=== PATIENT | male | born 1945 | race Caucasian/White ===

== ENCOUNTER 2018-06-01 11:36 | Emergency (ER) | payer OTHER ==
[~2018-06-01] VITALS: Ht 177.8 cm; Wt 99.3 kg
[2018-06-01 12:02] VITALS: Ht 177.8 cm; Wt 99.3 kg
[2018-06-01 13:10] LABS: BASOPHILS 0.8 % (0-2); EOSINOPHILS 4.1 % (0-7); HEMATOCRIT 42.6 % (42.0-54.0); HEMOGLOBIN 13.9 g/dL (13.5-17.5); IMMATURE GRANULOCYTES 0.5 % (0-5); LYMPHOCYTES 19.1 % (15-50); MCH 29.6 pg (26.0-34.0); MCHC 32.6 g/dL (31.0-37.0); MCV 90.8 fL (80.0-100.0); MEAN PLATELET VOLUME 9.9 fL (7.4-10.4); MONOCYTES 7.1 % (2-11); NEUTROPHILS 68.4 % (40-80); PLATELET COUNT 169 10x3/uL (130-400); RBC 4.69 10x6/uL (4.20-6.10); RDW 16.7 % (11.5-14.5)
[2018-06-01 13:15] LABS: ALBUMIN 4.1 g/dL (3.4-5.0); ALKALINE PHOSPHATASE 32 U/L (46-116); ALT (SGPT) 20 U/L (10-68); BILIRUBIN - TOTAL 1.01 mg/dL (0.2-1.3); CALC OSMOLALITY 282 mosm/kg (275-300); CARBON DIOXIDE 28.7 mmol/L (21.0-32.0); CHLORIDE - SERUM 103 mmol/L (98-107); CREATININE - SERUM 1.9 mg/dL (0.6-1.3); GLUCOSE 96 mg/dL (74-106); POTASSIUM - SERUM 4.6 mmol/L (3.5-5.1); PROTEIN - SERUM 8.2 g/dL (6.4-8.2); SODIUM 140 mmol/L (136-145); UREA NITROGEN 24 mg/dL (7-18); eGFR NON AFRICAN AMERICAN 37 mL/min (90-120)
[2018-06-01 13:22] LABS: CKMB 3.9 U/L (0.0-3.6)
[2018-06-01 13:25] LABS: TROPONIN-I < 0.017 ng/mL (0.000-0.060)
[2018-06-01] MEDS ORDERED: LASIX40 MG PO (16:34)
[2018-06-01] MEDS ORDERED: K-TAB10 MEQ PO (16:34)
[2018-06-01 16:58] VITALS: BP 200/129
== END 2018-06-01 17:01 | disposition home or self-care (01) ==
LOC: D.ER 11:36
PROVIDERS: Family Medicine
DX: J81.0 Acute pulmonary edema (principal); Z86.79 Personal history of other diseases of the circulatory system; I10 Essential (primary) hypertension; R00.2 Palpitations; N28.9 Disorder of kidney and ureter, unspecified; I49.3 Ventricular premature depolarization

== ENCOUNTER 2020-01-14 17:26 | Inpatient (IN) | payer OTHER ==
[~2020-01-14] VITALS: Ht 177.8 cm; Wt 90.3 kg
[~2020-01-14 17:26] MED LIST: K-TAB10 MEQ PO; LASIX40 MG PO
[2020-01-14] MEDS ORDERED: ZYLOPRIM100 MG PO (17:38)
[2020-01-14] MEDS ORDERED: LIPITOR80 MG PO (17:39)
[2020-01-14] MEDS ORDERED: COREG 3.1253.125 MG PO (17:39)
[2020-01-14] MEDS ORDERED: PACERONE200 MG PO (17:39)
[2020-01-14] MEDS ORDERED: VITAMIN B-121000 MCG PO (17:40)
[2020-01-14] MEDS ORDERED: TRICOR145 MG PO (17:40)
[2020-01-14] MEDS ORDERED: STOOL SOFTENER240 MG PO (17:40)
[2020-01-14] MEDS ORDERED: LASIX40 MG PO (17:41)
[2020-01-14] MEDS ORDERED: FERROUS GLUCON324 MG PO (17:41)
[2020-01-14] MEDS ORDERED: ZOLOFT100 MG PO (17:42)
[2020-01-14] MEDS ORDERED: SYNTHROID100 MCG PO (17:42)
[2020-01-14] MEDS ORDERED: PAMELOR10 MG PO (17:42)
[2020-01-14] MEDS ORDERED: VITAMIN D (17:44)
[2020-01-14 18:17] LABS: HEMATOCRIT 45.3 % (42.0-54.0); HEMOGLOBIN 14.6 g/dL (13.5-17.5); LYMPHOCYTES 11.4 % (15-50); MCH 30.8 pg (26.0-34.0); MCHC 32.2 g/dL (31.0-37.0); MCV 95.6 fL (80.0-100.0); MEAN PLATELET VOLUME 11.5 fL (7.4-10.4); NEUTROPHILS 79.1 % (40-80); PLATELET COUNT 180 10x3/uL (130-400); RBC 4.74 10x6/uL (4.20-6.10); RDW 19.1 % (11.5-14.5); WBC 7.2 10x3/uL (4.8-10.8)
[2020-01-14 18:21] LABS: APTT 41.2 SECONDS (22.8-39.4); INR 1.36 (0.85-1.17); PROTIME 16.6 SECONDS (11.6-15.0)
[2020-01-14 18:29] LABS: CALC OSMOLALITY 293 mosm/kg (275-300); CALCIUM 9.2 mg/dL (8.5-10.1); CARBON DIOXIDE 31.4 mmol/L (21.0-32.0); CHLORIDE - SERUM 101 mmol/L (98-107); CREATININE - SERUM 2.9 mg/dL (0.6-1.3); GLUCOSE 139 mg/dL (74-106); POTASSIUM - SERUM 4.6 mmol/L (3.5-5.1); SODIUM 141 mmol/L (136-145); UREA NITROGEN 44 mg/dL (7-18); eGFR NON AFRICAN AMERICAN 23 mL/min (90-120)
[2020-01-14 18:41] LABS: BILIRUBIN NEGATIVE (NEGATIVE); GLUCOSE NEGATIVE (NEGATIVE); KETONE NEGATIVE (NEGATIVE); NITRITE NEGATIVE (NEGATIVE); UROBILINOGEN NORMAL (NORMAL)
[2020-01-14 18:45] LABS: ALBUMIN 3.9 g/dL (3.4-5.0); ALKALINE PHOSPHATASE 31 U/L (30-120); ALT (SGPT) 31 U/L (10-68); BILIRUBIN - TOTAL 0.99 mg/dL (0.2-1.3); CKMB 2.3 U/L (0.0-3.6); CREATINE KINASE 72 UL (21-232); MAGNESIUM - SERUM 2.5 mg/dL (1.8-2.4); PROTEIN - SERUM 7.5 g/dL (6.4-8.2)
[2020-01-14 18:50] LABS: THYROID STIMULATING HORMONE 80.22 uIU/mL (0.36-3.74); TROPONIN-I < 0.017 ng/mL (0.000-0.060)
[2020-01-14 18:52] LABS: UDS - AMPHET NEGATIVE QUAL (NEGATIVE); UDS - BARB NEGATIVE QUAL (NEGATIVE); UDS - BENZO NEGATIVE QUAL (NEGATIVE); UDS - COCAINE NEGATIVE QUAL (NEGATIVE); UDS - OPIATE NEGATIVE QUAL (NEGATIVE); UDS - PCP NEGATIVE QUAL (NEGATIVE); UDS - THC NEGATIVE QUAL (NEGATIVE)
[2020-01-14 20:34] VITALS: BP 118/83
[2020-01-14 21:11] VITALS: BP 103/55; BMI 28.6
[2020-01-15 04:48] LABS: HEMATOCRIT 39.5 % (42.0-54.0); HEMOGLOBIN 12.9 g/dL (13.5-17.5); LYMPHOCYTES 16.1 % (15-50); MCH 30.9 pg (26.0-34.0); MCHC 32.7 g/dL (31.0-37.0); MCV 94.5 fL (80.0-100.0); MEAN PLATELET VOLUME 11.2 fL (7.4-10.4); NEUTROPHILS 73.1 % (40-80); PLATELET COUNT 152 10x3/uL (130-400); RBC 4.18 10x6/uL (4.20-6.10); RDW 19.1 % (11.5-14.5); WBC 6.2 10x3/uL (4.8-10.8)
[2020-01-15 04:56] LABS: ALBUMIN 3.3 g/dL (3.4-5.0); ANION GAP 13.4 mmol/L (8-16); BILIRUBIN - TOTAL 0.97 mg/dL (0.2-1.3); CALCIUM 8.6 mg/dL (8.5-10.1); CARBON DIOXIDE 29.6 mmol/L (21.0-32.0); CREATININE - SERUM 2.7 mg/dL (0.6-1.3); MAGNESIUM - SERUM 2.3 mg/dL (1.8-2.4); PHOSPHOROUS 3.3 mg/dL (2.5-4.9); PROTEIN - SERUM 6.6 g/dL (6.4-8.2); T4 THYROXIN - FREE 0.67 ng/dL (0.76-1.46)
[2020-01-15 06:27] VITALS: BP 116/67
--- NOTE | 2020-01-15 07:25 | NUR ---
PT IS RESTING IN BED WITH EYES CLOSED. RESPIRATIONS ARE EVEN AND UNLABORED. PT IS AAO X 4 AND ANSWERS ALL QUESTIONS APPROPRIATELY. PT REFUSING SCDS AT THIS TIME. PT DENIES PRESENCE OF PAIN/N/V/DYSPNEA AT THIS TIME. ALL FALL PRECAUTIONS IN PLACE. BED IS IN THE LOWEST POSITION. CALL LIGHT AND BEDSIDE TABLE ARE WITHIN REACH. SIDE RAILS X 2. PT DENIES FURTHER NEEDS. WILL CONT TO MONITOR.
[2020-01-15 08:46] VITALS: BP 126/73
--- NOTE | 2020-01-15 08:49 | NUR ---
PT STATES CLOSTERPHOBIA AND INCREASE IN ANXIETY DUE TO MRI AND FURTHER TESTING TODAY. ANALI GLYNN NOTIFIED OF PT STATEMENT. WILL AWAIT FURTHER ORDERS.
[2020-01-15 12:29] VITALS: BP 124/68
[2020-01-15 12:52] VITALS: Ht 177.8 cm; Wt 90.3 kg
--- NOTE | 2020-01-15 12:58 | MORECARE ---
CASE MANAGEMENT DISCHARGE SUMMARY PATIENT: АЛЕКСАНДР JORDAN UNIT: [id number] ADM DATE: 01/14/20 AGE: 74 : 44 SEX: M ROOM/BED: D.2213 AUTHOR: SHIVANI,DOC PHYSICIAN: REFERRING PHYSICIAN: RONA KHAN MD DATE OF SERVICE: 01/15/20 Discharge Plan Patient Name: АЛЕКСАНДР JORDAN Facility: [facility]:[place] : 1945 Planned Disposition: Home or Self Care Anticipated Discharge Date: Discharge Date: Expected LOS: Initial Reviewer: [email or web address] Initial Review Date: 01/14/2020 Generated: 01/15/20 1:58 pm Comments DCP- Discharge Planning Updated by [email or web address]: Kami Izquierdo on 01/15/20 11:[address] Patient Name: АЛЕКСАНДР JORDAN Admission Status: ER Accout number: [id number] Admission Date: 01-14-2020 : 1945 Admission Diagnosis: Attending: RONA KHAN Current LOS: 1 Anticipated DC Date: Planned Disposition: Home or Self Care Primary Insurance: MEDICARE A & B Discharge Planning Comments: CM met with patient to complete initial dc planning assessment. CM educated patient on the CM role and verbal consent given by patient to complete assessment. Patient lives at home with his spouse where he is independent at home. At discharge patient plans to return home and feels this is a safe discharge. 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 CM discussed availability of home health, rehab services, and medical equipment. His said she has a walker in the car, but he does not use it. She will be his driver license reviewing officer home. Patient denied known discharge needs at this time. CM will continue to follow and will assist as needed with dc plans/needs. File Clerk Data Entry: Kami Izquierdo DCPIA - Discharge Planning Initial Assessment Updated by [email or web address]: Kami Izquierdo on 01/15/20 12:53 pm * Is the patient Alert and Oriented? Yes * How many steps to enter\exit or inside your home? * PCP DR PAINTING * Pharm[facility] * Preadmission Environment Home with Family * ADLs Independent * Equipment Rolling Walker * List name and contact numbers for known caregivers / representatives who currently or will assist patient after discharge: FELIPA JORDAN [phone] * Verbal permission to speak to the caregivers and representatives has been obtained from the patient. N/A * Community resources currently utilized None * Additional services required to return to the preadmission environment? No * Can the patient safely return to the preadmission environment? Yes * Has this patient been hospitalized within the prior 30 days at any hospital? No Patient Name: АЛЕКСАНДР JORDAN Page [phone] at 1258 All edits/amendments must be made on the electronic document DICTATION DATE: 01/15/20 125 RADIOACTIVE WASTE DISPOSAL DISPATCHER: JAZMIN 01/15/20 1258 RPT#: [id number] DC DATE: STATUS: ADM IN [facility] [address] [place] [address] END OF REPORT
--- NOTE | 2020-01-15 13:13 | MORECARE ---
CASE MANAGEMENT DISCHARGE SUMMARY PATIENT: АЛЕКСАНДР JORDAN UNIT: [id number] ADM DATE: 01/14/20 AGE: 74 : 44 SEX: M ROOM/BED: D.2213 AUTHOR: SHIVANI,DOC PHYSICIAN: REFERRING PHYSICIAN: RONA KHAN MD DATE OF SERVICE: 01/15/20 Discharge Plan Patient Name: АЛЕКСАНДР JORDAN Facility: [facility]:[place] : 1945 Planned Disposition: Home or Self Care Anticipated Discharge Date: Discharge Date: Expected LOS: Initial Reviewer: [email or web address] Initial Review Date: 01/14/2020 Generated: 01/15/20 2:13 pm Comments DCP- Discharge Planning Updated by [email or web address]: Kami Izquierdo on 01/15/20 12:[address] spoke with Cele (CM at [place] about patient) Cele # [phone] DCP- Discharge Planning Updated by [email or web address]: Kami Izquierdo on 01/15/20 11:[address] Patient Name: АЛЕКСАНДР JORDAN Admission Status: ER Accout number: [id number] Admission Date: 01-14-2020 : 1945 Admission Diagnosis: Attending: RONA KHAN Current LOS: 1 Anticipated DC Date: Planned Disposition: Home or Self Care Primary Insurance: MEDICARE A & B Discharge Planning Comments: CM met with patient to complete initial dc planning assessment. CM educated patient on the CM role and verbal consent given by patient to complete assessment. Patient lives at home with his spouse where he is independent at home. At discharge patient plans to return home and feels this is a safe discharge. 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 CM discussed availability of home health, rehab services, and medical equipment. His said she has a walker in the car, but he does not use it. She will be his class c truck driver home. Patient denied known discharge needs at this time. CM will continue to follow and will assist as needed with dc plans/needs. Rn Immunology: Kami Izquierdo DCPIA - Discharge Planning Initial Assessment Updated by [email or web address]: Kami Izquierdo on 01/15/20 12:53 pm * Is the patient Alert and Oriented? Yes * How many steps to enter\exit or inside your home? * PCP [facility] PAINTING * [facility] * Preadmission Environment Home with Family * ADLs Independent * Equipment Rolling Walker * List name and contact numbers for known caregivers / representatives who currently or will assist patient after discharge: FELIPA JORDAN [phone] * Verbal permission to speak to the caregivers and representatives has been obtained from the patient. N/A * Community resources currently utilized None * Additional services required to return to the preadmission environment? No * Can the patient safely return to the preadmission environment? Yes * Has this patient been hospitalized within the prior 30 days at any hospital? No Last DP export: 01/15/20 11:58 a Patient Name: АЛЕКСАНДР JORDAN Page [phone] at 1313 All edits/amendments must be made on the electronic document DICTATION DATE: 01/15/20 1313 CERAMIC PLATER: JAZMIN 01/15/20 1313 RPT#: [id number] DC DATE: STATUS: ADM IN [facility] [address] [place] [address] END OF REPORT
--- NOTE | 2020-01-15 13:48 | MORECARE ---
CASE MANAGEMENT DISCHARGE SUMMARY PATIENT: АЛЕКСАНДР JORDAN UNIT: [id number] ADM DATE: 01/14/20 AGE: 74 : 44 SEX: M ROOM/BED: D.2213 AUTHOR: SHIVANI,DOC PHYSICIAN: REFERRING PHYSICIAN: RONA KHAN MD DATE OF SERVICE: 01/15/20 Discharge Plan Patient Name: АЛЕКСАНДР JORDAN Facility: [facility]:[place] : 1945 Planned Disposition: Home or Self Care Anticipated Discharge Date: Discharge Date: Expected LOS: Initial Reviewer: [email or web address] Initial Review Date: 01/14/2020 Generated: 01/15/20 2:47 pm Comments DCP- Discharge Planning Updated by [email or web address]: Kami Izquierdo on 01/15/20 12:[address] TAMERA WITH [place] EXPEDITOR CALLED AND NOTIFIED DCP- Discharge Planning Updated by [email or web address]: Kami Izquierdo on 01/15/20 12:[address] spoke with Cele (CM at [place] about patient) Cele # [phone] DCP- Discharge Planning Updated by [email or web address]: Kami Izquierdo on 01/15/20 11:[address] Patient Name: АЛЕКСАНДР JORDAN Admission Status: ER Accout number: [id number] Admission Date: 01-14-2020 : 1945 Admission Diagnosis: Attending: RONA KHAN Current LOS: 1 Anticipated DC Date: Planned Disposition: Home or Self Care Primary Insurance: MEDICARE A & B Discharge Planning Comments: CM met with patient to complete initial dc planning assessment. CM educated patient on the CM role and verbal consent given by patient to complete assessment. Patient lives at home with his spouse where he is independent at home. At discharge patient plans to return home and feels this is a safe discharge. 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 CM discussed availability of home health, rehab services, and medical equipment. His said she has a walker in the car, but he does not use it. She will be his warehouse delivery driver home. Patient denied known discharge needs at this time. CM will continue to follow and will assist as needed with dc plans/needs. Hand Etcher: Kami Izquierdo DCPIA - Discharge Planning Initial Assessment Updated by [email or web address]: Kami Izquierdo on 01/15/20 12:53 pm * Is the patient Alert and Oriented? Yes * How many steps to enter\exit or inside your home? * PCP DR PAINTING * [facility]acy [facility] * Preadmission Environment Home with Family * ADLs Independent * Equipment Rolling Walker * List name and contact numbers for known caregivers / representatives who currently or will assist patient after discharge: FELIPA JORDAN [phone] * Verbal permission to speak to the caregivers and representatives has been obtained from the patient. N/A * Community resources currently utilized None * Additional services required to return to the preadmission environment? No * Can the patient safely return to the preadmission environment? Yes * Has this patient been hospitalized within the prior 30 days at any hospital? No Last DP export: 01/15/20 12:13 p Patient Name: АЛЕКСАНДР JORDAN Page [phone] at 1348 All edits/amendments must be made on the electronic document DICTATION DATE: 01/15/20 1347 LIVESTOCK NUTRITION TERRITORY MANAGER: JAZMIN 01/15/20 1347 RPT#: [id number] DC DATE: STATUS: ADM IN [facility] [address] [place] [address] END OF REPORT
--- NOTE | 2020-01-15 14:14 | NUR ---
TO BRING CPAP FROM HOME.
--- NOTE | 2020-01-15 14:15 | NUR ---
PT IS SITTING UP TO SIDE OF BED. PT SPOUSE AT BEDSIDE. PT SPOUSE STATES THAT PT HAS BEEN HAVING DIFFICULTY WITH URINATION AND STATES "HE SAYS HE NEEDS TO GO BUT IT IS ONLY A LITTLE BIT AT A TIME". PT INSTRUCTED TO NOTIFY NURSE OF NEXT VOID AND WILL BLADDER SCAN AT COMPLETION OF VOIDING. PT VERBALIZES UNDERSTANDING.
[2020-01-15 17:42] VITALS: BP 108/66
--- NOTE | 2020-01-15 18:42 | NUR ---
PT STATES THAT HE "FORGOT" TO NOTIFY WHEN LAST VOID WAS COMPLETED TO DO BLADDER. SCAN. PT SPOUSE STATES "HE ONLY WENT JUST A LITTLE BIT AND THAT WAS ABOUT AN HOUR AGO". BLADDER SCAN COMPLETED AND SHOWED 398ML IN BLADDER. PT DENIES PRESENCE OF DISCOMFORT AND FEELINGS OF NEEDING TO URINATE AT THIS TIME.
--- NOTE | 2020-01-15 18:55 | NUR ---
KRISTIN MIKE APRN RETURNS PAGE AND NOTIFIED OF PT STATUS AND BLADDER SCAN. TELEPHONE ORDERS RECD ARE I&O Q 4 HOURS AND RESCAN BLADDER IN 4 HOURS. NOTIFY IF SCAN SHOWS 400 OR > FLUID IN BLADDER.
[2020-01-15 20:00] VITALS: BP 120/77
--- NOTE | 2020-01-15 20:00 | NUR ---
PT SITTING UP IN BED WITHOUT DISTRESS, AOX4. IV RIGHT AC INFUSING NS @ 75. NO COMPLAINTS, DENIES NEEDS. CPAP AT BEDSIDE FOR PT TO USE WHILE SLEEPING. LEAVING TO GO HOME AT THIS TIME. BED ALARM ON. CL IN REACH, WILL CTM
--- NOTE | 2020-01-15 23:00 | NUR ---
BLADDER SCAN SHOWED >249ML. PT DOES NOT FEEL URGE TO VOID AT THIS TIME
[2020-01-16] VITALS: BP 116/67
[2020-01-16 04:00] VITALS: BP 111/63
[2020-01-16 05:06] LABS: ALBUMIN 3.3 g/dL (3.4-5.0); ANION GAP 13.4 mmol/L (8-16); BILIRUBIN - TOTAL 0.94 mg/dL (0.2-1.3); CALCIUM 8.6 mg/dL (8.5-10.1); CARBON DIOXIDE 27.5 mmol/L (21.0-32.0); CREATININE - SERUM 2.4 mg/dL (0.6-1.3); MAGNESIUM - SERUM 2.3 mg/dL (1.8-2.4); PHOSPHOROUS 2.9 mg/dL (2.5-4.9); POTASSIUM - SERUM 3.9 mmol/L (3.5-5.1); PROTEIN - SERUM 6.8 g/dL (6.4-8.2)
[2020-01-16 05:36] LABS: HEMATOCRIT 40.1 % (42.0-54.0); HEMOGLOBIN 13.1 g/dL (13.5-17.5); LYMPHOCYTES 12.8 % (15-50); MCH 30.7 pg (26.0-34.0); MCHC 32.7 g/dL (31.0-37.0); MCV 93.9 fL (80.0-100.0); MEAN PLATELET VOLUME 11.1 fL (7.4-10.4); NEUTROPHILS 76.9 % (40-80); PLATELET COUNT 147 10x3/uL (130-400); RBC 4.27 10x6/uL (4.20-6.10); RDW 18.9 % (11.5-14.5); WBC 7.1 10x3/uL (4.8-10.8)
[2020-01-16 07:29] VITALS: BP 120/75
--- NOTE | 2020-01-16 07:37 | NUR ---
ALERT AND ORIENTED. LUNGS CLEAR BILATERALLY. HEART SOUNDS S1 AND S2 HEARD IN ALL MACDONALD. BOWEL SOUNDS ACTIVE X 4. SKIN INTACT WITHOUT REDNESS. IV TO RIGHT AC PATENT WITHOUT REDNESS. DENIES NEEDS. BED LOW. FALL PRECAUTIONS IN PLACE. CALL URBINA AND PERSONAL ITEMS INREACH. WILL CONTINUE TO MONITOR.
[2020-01-16 09:08] LABS: THYROGLOBULIN ANTIBODY <1.0 IU/mL (0.0-0.9); THYROID PEROXIDASE ABS <9 IU/mL (0-34)
--- NOTE | 2020-01-16 09:45 | NUR ---
PATIENT IN BED WITH NO COMPLAINTS OR SIGNS OF DISTRESS. IV INTACT. FAMILY AT BEDSIDE. CALL LIGHT WITHIN REACH.
[2020-01-16 12:52] VITALS: BP 108/66
--- NOTE | 2020-01-16 14:00 | NUR ---
PATIENT RECIEVED DC INSTRUCTIONS. VERBALIZED UNDERSTANDING.NO QUESTIONS AT THIS TIME. EXPLAINED TO MECHANICAL DRAWING TEACHER MEDS AT [facility].VERBALIZED UNDERSTANDING. IV REMOVED WITH CATH TIP INTACT. ESCORTED PATIENT DOWN TO PRIVATE VEHICLE WITH PERSONAL BELONGINGS WITH FAMILY.
[2020-01-16] MEDS ORDERED: LEVOTHYROXINE150 MCG PO (14:23)
[2020-01-16] MEDS ORDERED: FLOMAX0.4 MG PO (14:23)
--- NOTE | 2020-01-16 17:13 | MORECARE ---
CASE MANAGEMENT DISCHARGE SUMMARY PATIENT: АЛЕКСАНДР JORDAN UNIT: [id number] ADM DATE: 01/15/20 AGE: 74 : 44 SEX: M ROOM/BED: D.2213 AUTHOR: SHIVANI,DOC PHYSICIAN: REFERRING PHYSICIAN: RONA KHAN MD DATE OF SERVICE: 01/16/20 Discharge Plan Patient Name: АЛЕКСАНДР JORDAN Facility: [facility]:[place] : 1945 Planned Disposition: Home or Self Care Anticipated Discharge Date: Discharge Date: 01/16/2020 Expected LOS: Initial Reviewer: [email or web address] Initial Review Date: 01/14/2020 Generated: 01/16/20 6:12 pm Comments DCP- Discharge Planning Updated by [email or web address]: Kami Izquierdo on 01/15/20 12:[address] TAMERA WITH [place] EXPEDITOR CALLED AND NOTIFIED DCP- Discharge Planning Updated by [email or web address]: Kami Izquierdo on 01/15/20 12:[address] spoke with Cele (CM at [place] about patient) Cele # [phone] DCP- Discharge Planning Updated by [email or web address]: Kami Izquierdo on 01/15/20 11:[address] Patient Name: АЛЕКСАНДР JORDAN Admission Status: ER Accout number: [id number] Admission Date: 01-14-2020 : 1945 Admission Diagnosis: Attending: RONA KHAN Current LOS: 1 Anticipated DC Date: Planned Disposition: Home or Self Care Primary Insurance: MEDICARE A & B Discharge Planning Comments: CM met with patient to complete initial dc planning assessment. CM educated patient on the CM role and verbal consent given by patient to complete assessment. Patient lives at home with his spouse where he is independent at home. At discharge patient plans to return home and feels this is a safe discharge. 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 CM discussed availability of home health, rehab services, and medical equipment. His said she has a walker in the car, but he does not use it. She will be his driver guard home. Patient denied known discharge needs at this time. CM will continue to follow and will assist as needed with dc plans/needs. Police Dispatcher: Kami Izquierdo DCPIA - Discharge Planning Initial Assessment Updated by [id number]: Kami Izquierdo on 01/15/20 12:53 pm * Is the patient Alert and Oriented? Yes * How many steps to enter\exit or inside your home? * PCP [facility] PAINTING * [facility] * Preadmission Environment Home with Family * ADLs Independent * Equipment Rolling Walker * List name and contact numbers for known caregivers / representatives who currently or will assist patient after discharge: FELIPA JORDAN [phone] * Verbal permission to speak to the caregivers and representatives has been obtained from the patient. N/A * Community resources currently utilized None * Additional services required to return to the preadmission environment? No * Can the patient safely return to the preadmission environment? Yes * Has this patient been hospitalized within the prior 30 days at any hospital? No Last DP export: 01/15/20 12:48 p Patient Name: АЛЕКСАНДР JORDAN Page [phone] at 1713 All edits/amendments must be made on the electronic document DICTATION DATE: 01/16/201711 TITLE INSURANCE EXAMINER: JAZMIN 01/16/201711 RPT#: [id number] DC DATE:01/16/20 STATUS: DIS IN [facility] [address] [place] [address] END OF REPORT
== END 2020-01-16 14:15 | disposition home or self-care (01) | DRG 643 ==
LOC: D.ER 17:26 → D.MS 19:22 → OBSVTIME 19:22 → D.MS 19:22
PROVIDERS: Family Medicine; ADMIT Internal Medicine Nephrology; ATTEND Internal Medicine Nephrology
DX: E03.9 Hypothyroidism, unspecified (principal); G93.41 Metabolic encephalopathy; N17.9 Acute kidney failure, unspecified; E78.5 Hyperlipidemia, unspecified; I10 Essential (primary) hypertension; I48.91 Unspecified atrial fibrillation; K21.9 Gastro-esophageal reflux disease without esophagitis; D50.9 Iron deficiency anemia, unspecified; M19.90 Unspecified osteoarthritis, unspecified site; G89.29 Other chronic pain; M54.9 Dorsalgia, unspecified; N40.0 Benign prostatic hyperplasia without lower urinary tract symptoms

== ENCOUNTER 2020-01-29 16:52 | Inpatient (IN) | payer OTHER, MEDICARE ==
[~2020-01-29] VITALS: Ht 177.8 cm; Wt 90.3 kg
[~2020-01-29 16:52] MED LIST changes: +COREG 3.1253.125 MG PO; +FERROUS GLUCON324 MG PO; +FLOMAX0.4 MG PO; +LEVOTHYROXINE150 MCG PO; +LIPITOR80 MG PO; +PACERONE200 MG PO; +PAMELOR10 MG PO; +STOOL SOFTENER240 MG PO; +SYNTHROID100 MCG PO; +TRICOR145 MG PO; +VITAMIN B-121000 MCG PO; +VITAMIN D; +ZOLOFT100 MG PO; +ZYLOPRIM100 MG PO
[2020-01-29 18:07] LABS: BASOPHILS 0.2 % (0-2); EOSINOPHILS 2.4 % (0-7); HEMATOCRIT 41.5 % (42.0-54.0); HEMOGLOBIN 13.9 g/dL (13.5-17.5); IMMATURE GRANULOCYTES 0.2 % (0-5); LYMPHOCYTES 10.7 % (15-50); MCHC 33.5 g/dL (31.0-37.0); MCV 92.6 fL (80.0-100.0); MEAN PLATELET VOLUME 11.8 fL (7.4-10.4); MONOCYTES 7.2 % (2-11); NEUTROPHILS 79.3 % (40-80); PLATELET COUNT 168 10x3/uL (130-400); RBC 4.48 10x6/uL (4.20-6.10); WBC 6.3 10x3/uL (4.8-10.8)
[2020-01-29 18:19] LABS: APTT 41.4 SECONDS (22.8-39.4); INR 1.46 (0.85-1.17); PROTIME 17.6 SECONDS (11.6-15.0)
[2020-01-29 18:30] LABS: CALC OSMOLALITY 289 mosm/kg (275-300); CALCIUM 8.6 mg/dL (8.5-10.1); CARBON DIOXIDE 27.6 mmol/L (21.0-32.0); CHLORIDE - SERUM 102 mmol/L (98-107); CREATININE - SERUM 2.1 mg/dL (0.6-1.3); GLUCOSE 110 mg/dL (74-106); POTASSIUM - SERUM 3.4 mmol/L (3.5-5.1); SODIUM 141 mmol/L (136-145); UREA NITROGEN 35 mg/dL (7-18); eGFR NON AFRICAN AMERICAN 33 mL/min (90-120)
--- NOTE | 2020-01-29 18:39 | NUR ---
SPOKE TO OF PATIENT. SHE STATES PT HAS HAD INCREASED CONFUSION OVER THE LAST 3 WEEKS PLUS, AND WAS RECENTLY HOSPITALIZED FOR OBSERVATION PER .
--- NOTE | 2020-01-29 18:40 | NUR ---
PER RECENTLY ADMITTED WITH POSSIBLE STROKE, AND STATES HAD MULTIPLE TESTS INCLUDING MRI.
[2020-01-29 18:45] LABS: ALBUMIN 3.6 g/dL (3.4-5.0); ALKALINE PHOSPHATASE 38 U/L (30-120); ALT (SGPT) 55 U/L (10-68); BILIRUBIN - TOTAL 1.65 mg/dL (0.2-1.3); C-REACTIVE PROTEIN 6.6 mg/dL (0.0-0.9); CKMB 10.1 U/L (0.0-3.6); CREATINE KINASE 253 UL (21-232); FERRITIN 159 ng/mL (3-244); PROTEIN - SERUM 7.3 g/dL (6.4-8.2)
[2020-01-29 18:53] LABS: PRO BNP 47832 pg/mL (0-450)
[2020-01-29 18:59] VITALS: BP 129/79
[2020-01-29 20:00] VITALS: BP 128/78
--- NOTE | 2020-01-29 20:04 | NUR ---
SPOKE WITH PT AND PT ABOUT ADMISSION. [facility], [facility] AGREED. JORGE RODRIGUES NOTIFIED OF ADMISSION HERE AT [facility].
--- NOTE | 2020-01-29 22:00 | NUR ---
PT GOWN AND BED LINENS CHANGED AT THIS TIME AFTHER URINATING ON HIMSELF. PT UNAWARE OF THE EVENT UNTIL NURSE BROUGHT IT TO HIS ATTENTION. PT DENIES OTHER NEED AT THIS TIME.
[2020-01-29] MEDS ORDERED: LIPITOR40 MG PO (22:41)
[2020-01-29] MEDS ORDERED: LASIX40 MG PO (22:44)
[2020-01-30] VITALS: BP 108/63
--- NOTE | 2020-01-30 03:40 | NUR ---
UA OBTAINED AND TAKEN TO LAB
[2020-01-30 04:00] VITALS: BP 107/59
[2020-01-30 04:05] LABS: BILIRUBIN NEGATIVE (NEGATIVE); GLUCOSE NEGATIVE (NEGATIVE); KETONE NEGATIVE (NEGATIVE); NITRITE NEGATIVE (NEGATIVE); UROBILINOGEN NORMAL (NORMAL)
[2020-01-30 04:07] LABS: BACTERIA NONE SEEN /hpf (NEGATIVE); EPITHELIAL CELLS NSEEN /hpf (0-5); RED CELLS - URINE 0-5 /hpf (0-5); WHITE CELLS - URINE NSEEN /hpf (NEGATIVE)
[2020-01-30 06:36] LABS: BASOPHILS 0.3 % (0-2); EOSINOPHILS 4.8 % (0-7); HEMATOCRIT 39.6 % (42.0-54.0); HEMOGLOBIN 12.8 g/dL (13.5-17.5); LYMPHOCYTES 14.5 % (15-50); MCH 30.1 pg (26.0-34.0); MCHC 32.3 g/dL (31.0-37.0); MCV 93.2 fL (80.0-100.0); MEAN PLATELET VOLUME 11.5 fL (7.4-10.4); MONOCYTES 7.9 % (2-11); NEUTROPHILS 72.5 % (40-80); PLATELET COUNT 138 10x3/uL (130-400); RBC 4.25 10x6/uL (4.20-6.10); RDW 18.2 % (11.5-14.5); WBC 5.8 10x3/uL (4.8-10.8)
[2020-01-30 06:59] LABS: CALC OSMOLALITY 290 mosm/kg (275-300); CALCIUM 8.2 mg/dL (8.5-10.1); CARBON DIOXIDE 28.3 mmol/L (21.0-32.0); CHLORIDE - SERUM 105 mmol/L (98-107); CKMB 8.4 U/L (0.0-3.6); CREATINE KINASE 209 UL (21-232); CREATININE - SERUM 1.9 mg/dL (0.6-1.3); GLUCOSE 82 mg/dL (74-106); MAGNESIUM - SERUM 2.2 mg/dL (1.8-2.4); PHOSPHOROUS 2.9 mg/dL (2.5-4.9); POTASSIUM - SERUM 3.1 mmol/L (3.5-5.1); SODIUM 143 mmol/L (136-145); T4 THYROXIN - FREE 0.84 ng/dL (0.76-1.46); TROPONIN-I 0.034 ng/mL (0.000-0.060); UREA NITROGEN 31 mg/dL (7-18); eGFR NON AFRICAN AMERICAN 37 mL/min (90-120)
[2020-01-30 07:00] LABS: THYROID STIMULATING HORMONE 50.12 uIU/mL (0.36-3.74)
--- NOTE | 2020-01-30 07:08 | NUR ---
PT LYING IN BED. ALERT AND ORIENTED EXCEPT TO SITUATION. PT STATES HE HAS NO FURTHER NEEDS AT THIS TIME. O2 AT 2L VIA NC. BED LOW. CL IN REACH. URINAL EMPTIED.
[2020-01-30 08:11] VITALS: BP 116/66
[2020-01-30 10:36] VITALS: Ht 177.8 cm; Wt 90.3 kg
[2020-01-30 12:19] LABS: CKMB 10.6 U/L (0.0-3.6); CREATINE KINASE 214 UL (21-232); TROPONIN-I 0.031 ng/mL (0.000-0.060)
[2020-01-30 13:37] VITALS: BP 100/63
[2020-01-30 16:30] VITALS: BP 101/69
--- NOTE | 2020-01-30 19:00 | NUR ---
RECEIVED BEDSIDE REPORT. PATIENT ALERT AND ORIENTED, RESTING COMFORTABLY IN BED. RESPIRATIONS ARE EVEN AND UNLABORED. NO S/S OF DISTRESS. NO C/O PAIN. CALL LIGHT WITHIN REACH. WILL CPOC.
[2020-01-30 19:52] LABS: CKMB 8.9 U/L (0.0-3.6); CREATINE KINASE 231 UL (21-232); TROPONIN-I 0.027 ng/mL (0.000-0.060)
[2020-01-30 20:00] VITALS: BP 122/65
[2020-01-31] VITALS: BP 109/66
[2020-01-31 04:00] VITALS: BP 115/70
[2020-01-31 06:27] LABS: ANION GAP 16.8 mmol/L (8-16); CALCIUM 8.5 mg/dL (8.5-10.1); CARBON DIOXIDE 23.6 mmol/L (21.0-32.0); CREATININE - SERUM 2.3 mg/dL (0.6-1.3); MAGNESIUM - SERUM 2.2 mg/dL (1.8-2.4); PHOSPHOROUS 3.3 mg/dL (2.5-4.9); POTASSIUM - SERUM 4.4 mmol/L (3.5-5.1)
[2020-01-31 06:36] LABS: HEMATOCRIT 42.8 % (42.0-54.0); HEMOGLOBIN 13.8 g/dL (13.5-17.5); MCH 30.6 pg (26.0-34.0); MCHC 32.2 g/dL (31.0-37.0); MCV 94.9 fL (80.0-100.0); PLATELET COUNT 116 10x3/uL (130-400); RBC 4.51 10x6/uL (4.20-6.10); RDW 17.7 % (11.5-14.5)
[2020-01-31 06:42] LABS: WBC 7.3 10x3/uL (4.8-10.8)
--- NOTE | 2020-01-31 08:20 | CN ---
PATIENT NAME:АЛЕКСАНДР JORDAN MEDICAL RECORD: [id number] : [birth year] LOCATION:DBrittny D.2114 ADMIT DATE: 01/29/20 ACCOUNT: [id number] CONSULTING PHYSICIAN: CAT SANCHEZ MD REFERRING PHYSICIAN: RONA KHAN MD DATE OF CONSULTATION: 01/30/2020 HISTORY OF PRESENT ILLNESS: A 74-year-old male, he typically follows at [facility] with history of atrial fibrillation, obstructive sleep apnea with home CPAP, hypertension, cardiomyopathy. No recent echo to his knowledge, has history of peripheral vascular disease status post descending aneurysm repair, admitted with dyspnea, shortness of breath, orthopnea as well as postural instability, recently was found to have a TSH of 80, found to have markedly elevated BNP. We are asked to see him concerning his cardiovascular status. PAST MEDICAL HISTORY: Includes; 1. History of hypertension. 2. Atrial fibrillation. 3. Anemia. 4. Dyslipidemia. 5. Peripheral vascular disease status post descending aneurysm repair. ALLERGIES: INCLUDE PENICILLIN AND SULFA. MEDICATIONS: Include ferrous sulfate 324 mg p.o. daily, atorvastatin 40 every day, fenofibrate 145 every day, Nortriptyline 10 mg p.o. at bedtime, Zoloft 100 mg p.o. every day, Lasix 40 mg p.o. every day. SOCIAL HISTORY: Nonsmoker and nondrinker. Easily takes care of all his ADLs. REVIEW OF SYSTEMS: The patient reports easy bruising but reports no swollen glands. The patient reports no fever, no night sweats, no significant weight gain, no significant weight loss. No significant exercise tolerance. The patient reports no dry eyes, no irritation, no vision change. Patient reports no difficulty hearing and no ear pain. Patient reports no frequent nose bleeds or nose and sinus problems. Patient reports on arm pain on exertion. No shortness of breath while lying down. No history of heart murmur. Patient reports no cough, no wheezing or coughing up blood. Patient reports no abdominal pain, no vomiting. Normal appetite. No diarrhea and not vomiting blood. No nausea and no constipation. Patient reports no incontinence. No difficulty urinating. No hematuria. No increased frequency. Patient reports no muscle aches. No weakness, no arthralgias, no back pain. No swelling of the extremities. Patient reports no abnormal mole, no jaundice, no rashes. Reports no loss of consciousness. No weakness and no numbness. No seizures, dizziness, or headaches. The patient reports no depression, no sleep disturbance, feeling safe in a relationship and no alcohol abuse. Patient reports on fatigue. Reports no runny nose or sinus pressure. No itching, no hives, and no frequent sneezing. PHYSICAL EXAMINATION: GENERAL: Pleasant gentleman in no acute distress, appears stated age. VITAL SIGNS: Blood pressure 116/66, pulse 84 and regular. HEENT: Normocephalic, atraumatic. HEART: Regular, occasional extrasystole, II/ systolic ejection murmur. LUNGS: Actually fairly good air excursion. CONSULT REPORT [id number] АЛЕКСАНДР JORDAN ABDOMEN: Soft, nontender. EXTREMITIES: Pulses 2+ with trace edema. NEUROLOGIC: Grossly intact. DIAGNOSTIC DATA: EKG shows a normal sinus rhythm with PACs, nonspecific ST-T changes. Voltage is normal. IMPRESSION: Dyspnea on exertion, shortness of breath, markedly elevated BNP. This may be related to hypothyroidism, currently under treatment. We will check echocardiographic studies to make sure he does have hypothyroidism-induced cardiomyopathy or pericardial effusion. Further recommendations based on the above. TRANSINT:[id number] Voice Confirmation ID: [id number] DOCUMENT ID: [id number] CAT SANCHEZ MD at 0820 CC: [id number] DICTATION DATE: 01/30/20 0856 EXTERNAL AUDITOR: 01/30/20 1003 ADM IN [place] [address] [place] [address]
--- NOTE | 2020-01-31 08:20 | EC ---
PATIENT:АЛЕКСАНДР JORDAN DATE OF SERVICE: 01/29/20 SEX: M MEDICAL RECORD: [id number] DATE OF : [birth year] LOCATION:D.M2 D.211 AGE OF PATIENT: 74 ADMISSION DATE: 01/29/20 REFERRING PHYSICIAN: INTERPRETING PHYSICIAN: CAT SANCHEZ MD ECHOCARDIOGRAM REPORT ECHO CHARGES 4 ECHO COMPLETE Date: 01/30/20 CLINICAL DIAGNOSIS: CHF ECHOCARDIOGRAPHIC MEASUREMENTS (adult normal given) AC root (d.<3.7cm) 3.7 cm LV Septum d (<1.2 cm> 0.8 cm Valve Excursion 1.1 cm LV Septum (systole) 1.2 cm Left Atria (s.<4.0cm> 4.8 cm LVPW d(<1.2cm) 1.0 cm RV (d.<2.3cm) 3.6 cm LVPW (sytole) 1.2 cm LV diastole(<5.6CM) 7.8 cm MV E-F(>70mm/sec) cm LV systole 6.6 cm LVOT Diameter 2.3 cm MV exc.(>10mm) cm Est.ejection fraction (50-75%) % DOPPLER: LVIT cm/sec A 49.0 cm/sec E 85.0 cm/sec LA cm/sec RVSP 58.0 mmHg LVOT 62.0 cm/sec AOP1/2T 417.0m/s Asc. Ao 223 cm/sec RVOT 34.0 cm/sec RA cm/sec PA 58.0 cm/sec AV Gradient Peak 20.0 mmHg AV Mean 10.4 mmHg AV Area 1.2 cm MV Gradient Peak 4.8 mmHg MV Mean 1.6 mmHg MV Area cm COMMENTS: Construction Specialist: Davidson GRANGEROE Veter[facility] Laboratory Diagnostician: 3 Dr. Morfin TAPE# PACS Pericardial Effusion N DATE OF SERVICE: 01/30/2020 Echocardiograph study includes adequate 2D, color flow imaging, spectral Doppler, and M-mode. No LVH. LV internal dimension is dilated. LV is globally hypokinetic with reduced EF, estimated EF 20% to 25%. Aortic valve is calcified with restricted leaflet motion. Calculated valve area of 1.2 cm-squared, putting this in the mild to moderate range. Left atrium is dilated at 4.8 cm. Mitral valve is thickened. Mitral valve without any calcifications. Moderate MR. Right-sided ECHOCARDIOGRAM REPORT [id number] NIKKIАЛЕКСАНДР chambers mildly dilated. Moderate TR. RV systolic pressure is estimated at greater than or equal to 58 mmHg via the continuity equation. TRANSINT:[id number] Voice Confirmation ID: [id number] DOCUMENT ID: [id number] CAT SANCHEZ MD at 0820 CC: [id number] DICTATION DATE: 01/30/20 1607 CONFERENCE ASSISTANT: 01/30/20 1811 ADM IN [place] [address] [place] [id number]
[2020-01-31 09:08] VITALS: BP 95/53
[2020-01-31 09:08] LABS: THYROGLOBULIN ANTIBODY <1.0 IU/mL (0.0-0.9); THYROID PEROXIDASE ABS <9 IU/mL (0-34)
[2020-01-31 10:22] LABS: EOSINOPHILS 1 % (0-7); LYMPHOCYTES 15 % (15-50); MONOCYTES 13 % (2-11); NEUTROPHILS 71 % (40-80); PLATELET ESTIMATE NORMAL; PLATELET MORPHOLOGY PLT CLUMPS PRESENT
[2020-01-31] MEDS ORDERED: COREG 3.1253.125 MG PO (12:48)
[2020-01-31 12:57] VITALS: BP 114/75
--- NOTE | 2020-01-31 13:51 | NUR ---
RECEIVED DC ORDER FROM DR KHAN, PENDING CARDIOLOGY APPROVAL, SPOKE TO WAI AND WAS TOLD THAT SHE WILL BE IN SHORTLY TO PLACE ORDER. NO OTHER NEEDS AT THIS TIME.
--- NOTE | 2020-01-31 13:59 | NUR ---
I have reviewed this patient and I concur with the Shift Assessment completed by the Licensed Practical Nurse today this shift.
--- NOTE | 2020-01-31 14:03 | MORECARE ---
CASE MANAGEMENT DISCHARGE SUMMARY PATIENT: АЛЕКСАНДР JORDAN UNIT: [id number] ADM DATE: 01/29/20 AGE: 74 : 43 SEX: M ROOM/BED: D.2114 AUTHOR: JOAQUÍN PARRISH PHYSICIAN: REFERRING PHYSICIAN: RONA KHAN MD DATE OF SERVICE: 01/31/20 Discharge Plan Patient Name: АЛЕКСАНДР JORDAN [facility] : 1945 Planned Disposition: Home Anticipated Discharge Date: 01/31/20 Discharge Date: Expected LOS: 2 Initial Reviewer: [email or web address] Initial Review Date: 01/31/2020 Generated: 01/31/20 3:03 pm Patient Name: АЛЕКСАНДР JORDAN Page [phone] at 1403 All edits/amendments must be made on the electronic document DICTATION DATE: 01/31/20 140 RIVET SPINNER: JAZMIN 01/31/20 1403 RPT#: [id number] DC DATE: STATUS: ADM IN [facility] [address] [place] [address] END OF REPORT
--- NOTE | 2020-01-31 14:11 | MORECARE ---
CASE MANAGEMENT DISCHARGE SUMMARY PATIENT: АЛЕКСАНДР JORDAN UNIT: [id number] ADM DATE: 01/29/20 AGE: 74 : 43 SEX: M ROOM/BED: D.2114 AUTHOR: SHIVANI,DOC PHYSICIAN: REFERRING PHYSICIAN: RONA KHAN MD DATE OF SERVICE: 01/31/20 Discharge Plan Patient Name: АЛЕКСАНДР JORDAN Facility: [facility]:[place] : 1945 Planned Disposition: Home Anticipated Discharge Date: 01/31/20 Discharge Date: Expected LOS: 2 Initial Reviewer: [email or web address] Initial Review Date: 01/31/2020 Generated: 01/31/20 3:11 pm Comments DCP- Discharge Planning Updated by [email or web address]: Skip Abdi on 01/31/20 1:[address] Patient Name: АЛЕКСАНДР JORDAN Admission Status: ER Accout number: [id number] Admission Date: 01-29-2020 : 1945 Admission Diagnosis: Attending: RONA KHAN Current LOS: 2 Anticipated DC Date: 01-31-2020 Planned Disposition: Home Primary Insurance: [employer] Discharge Planning Comments: CM MET WITH PT IN ROOM TO DISCUSS DISCHARGE PLANNING AND NEEDS. PT REPORTS LIVING AT HOME INDEPENDENTLY WITH HIS . PT [facility]. PT HAS NO OUTSIDE SERVICES ASSISTING IN THE HOME. CM DISCUSSED AVAILABILITY OF HOME HEALTH, REHAB SERVICES AND MEDICAL EQUIPMENT. PT DENIES DISCHARGE NEEDS, REPORTS HIS WILL PICK HIM UP FOR DISCHARGE HOME. REFERENCE DATA EXPERT NURSE NOTIFIED. Network Operations Center Engineer: Skip Abdi DCPIA - Discharge Planning Initial Assessment Updated by [email or web address]: Skip Abdi on 01/31/20 2:06 pm * Is the patient Alert and Oriented? Yes * How many steps to enter\exit or inside your home? RAMP * PCP [facility] PAINTING, [facility] * Pharmacy MD * Preadmission Environment Home with Family * ADLs Independent * Equipment CPAP Rolling Walker * Other Equipment [employer] - MEDICAL EQUIPMENT PROVIDER * List name and contact numbers for known caregivers / representatives who currently or will assist patient after discharge: FELIPA JORDAN, SPOUSE, * Verbal permission to speak to the caregivers and representatives has been obtained from the patient. N/A * Community resources currently utilized None * Additional services required to return to the preadmission environment? No * Can the patient safely return to the preadmission environment? Yes * Has this patient been hospitalized within the prior 30 days at any hospital? Yes Last DP export: 01/31/20 1:03 pm Patient Name: АЛЕКСАНДР JORDAN Page [id number] at 1411 All edits/amendments must be made on the electronic document DICTATION DATE: 01/31/201410 DEBONER: JAZMIN 01/31/201410 RPT#: [id number] DC DATE: STATUS: ADM IN [facility] [address] [place] [address] END OF REPORT
--- NOTE | 2020-01-31 16:11 | NUR ---
PT DISCHARGED HOME VIA WHEELCHAIR. PIV REMOVED WITH CATHETER TIP FULLY INTACT. PT SIGNED PROPER DISCHARGE INSTRUCTIONS AND REMOVED ALL VALUABLES FROM THE ROOM. TELEMETRY REMOVED AND RETURNED.
== END 2020-01-31 16:12 | disposition home or self-care (01) | DRG 291 ==
LOC: D.ER 16:52 → D.M2 21:13
PROVIDERS: Family Medicine; ADMIT Internal Medicine Nephrology; ATTEND Internal Medicine Nephrology
DX: I13.0 Hypertensive heart and chronic kidney disease with heart failure and stage 1 through stage 4 chronic kidney disease, or unspecified chronic kidney disease (principal); I50.23 Acute on chronic systolic (congestive) heart failure; J96.01 Acute respiratory failure with hypoxia; N17.9 Acute kidney failure, unspecified; N18.9 Chronic kidney disease, unspecified; E03.9 Hypothyroidism, unspecified; E78.5 Hyperlipidemia, unspecified; D64.9 Anemia, unspecified